=== PATIENT | female | born 1995 | race African-American/Black ===

== ENCOUNTER 2016-11-06 16:20 | Emergency (ER) | payer OTHER ==
[~2016-11-06] VITALS: Ht 160 cm; Wt 61.6 kg
[~2016-11-06 16:20] MED LIST: HYDR-5688 PO
[2016-11-06 16:35] VITALS: TEMP 36.8; Ht 160 cm; Wt 61.6 kg
--- NOTE | 2016-11-06 18:19 | DIAGNOSTIC IMAGING REPORT ---
CT HEAD WITHOUT CONTRAST (CT) CLINICAL HISTORY: Head trauma, headache, sensation of fogginess. COMPARISON STUDY: No previous studies for comparison. TECHNIQUE: Axial CT of the brain is performed from the vertex to the skull base. IV contrast was not administered for this examination. CT DOSE: 767.83 mGy.cm FINDINGS: No intra or extra-axial mass lesions are visualized. There is no CT evidence of acute cortical infarction. There is no evidence of midline shift. There is no acute hemorrhage. No calvarial fractures are visualized. There is no evidence of pathologic ventricular dilatation. There is no evidence of acute sinusitis IMPRESSION: Normal noncontrast head CT. Electronically signed by: Rick Schmitt M.D. 11/06/2016 6:17 PM Dictated Date/Time: 11/06/2016 6:16 PM
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
[2016-11-06 19:41] VITALS: BP 110/65; PULSE 78; O2SAT 98
[2017-04-28] MEDS ORDERED: BCPILLS PO (12:47)
== END 2016-11-06 19:42 | disposition home or self-care (01) ==
LOC: C.EDB 16:22
DX: S09.90XA Unspecified injury of head, initial encounter (principal); W10.8XXA Fall (on) (from) other stairs and steps, initial encounter; F32.9 Major depressive disorder, single episode, unspecified

== ENCOUNTER 2017-04-28 18:52 | Emergency (ER) | payer OTHER ==
[~2017-04-28] VITALS: Ht 160 cm; Wt 66.6 kg
[~2017-04-28 18:52] MED LIST changes: +BCPILLS PO; -HYDR-5688 PO
[2017-04-28 18:55] VITALS: TEMP 37.6; Ht 160 cm; Wt 66.6 kg
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
[2017-04-28] MEDS ORDERED: ONDANSETRON 8 MG/54 ML D5W IV STA (19:13)
[2017-04-28] MEDS ORDERED: SODIUM CHLORIDE 0.9% 1000ML 1,000 ML IV STA (19:13)
[2017-04-28] MEDS ORDERED: IBUP-103 PO (19:23)
[2017-04-28] MEDS ORDERED: AMT10 PO (19:23)
[2017-04-28 19:42] LABS: BASO % 0.4 %; BASO ABS # 0.03 K/uL (0-0.2); COMPLETE YES; EOS % 4.9 %; HEMATOCRIT 45.6 % (37-47); IG% 0.3 %; LYMPH % 16.6 %; LYMPH ABS # 1.13 K/uL (1.2-3.4); MEAN CELL VOLUME 88.9 fL (80-100); MEAN CORPUSCULAR HGB CONC 33.8 g/dl (32-36); MONO % 10.9 %; NEUT % 66.9 %; PLATELET COUNT 174 K/uL (130-400); RED BLOOD COUNT 5.13 M/uL (4.2-5.4); WHITE BLOOD COUNT 6.79 K/uL (4.8-10.8)
--- NOTE | 2017-04-28 20:53 | DIAGNOSTIC IMAGING REPORT ---
PA CHEST RADIOGRAPH AND UPRIGHT AND SUPINE AP RADIOGRAPHS OF THE ABDOMEN CLINICAL HISTORY: Abdominal pain, nausea and vomiting. COMPARISON STUDY: No previous studies for comparison. FINDINGS: Lung volumes are normal. Lungs are clear. There is no pneumothorax or pleural effusion. Cardiac size is normal. Mediastinal contours are normal. There is no evidence of pulmonary edema. There is no free air. Pelvic calcifications likely reflect phleboliths. The bowel gas pattern is normal. IMPRESSION: 1. No free air or evidence of bowel obstruction. 2. No acute cardiopulmonary findings. Electronically signed by: Olivier Hernandez M.D. 04/28/2017 8:52 PM Dictated Date/Time: 04/28/2017 8:51 PM
[2017-04-28] MEDS ORDERED: DICYCLOMINE HCL 20 MG TAB PO STA (20:58)
[2017-04-28 21:10] LABS: PREG INTERNAL NEGATIVE QC NEG CLEAR BACKGROUND; PREG INTERNAL POSITIVE QC POS CONTROL LINE
[2017-04-28 21:16] LABS: BUN/CREATININE RATIO 7.9 (10-20); CALCIUM 7.3 mg/dl (8.5-10.1); CREATININE 0.75 mg/dl (0.60-1.20); POTASSIUM 4.1 mmol/L (3.5-5.1)
[2017-04-28 21:19] LABS: ALB/GLOB RATIO 1.2 (0.9-2)
[2017-04-28] MEDS ORDERED: MULT-506 PO (21:24)
[2017-04-28] MEDS ORDERED: LXP10 PO (21:24)
[2017-04-28 22:57] VITALS: BP 121/77; PULSE 89; O2SAT 98
[2017-04-28] MEDS ORDERED: ONDANSETRON HOME PACK 4MG OD TAB PO ONE (23:00)
== END 2017-04-28 22:58 | disposition home or self-care (01) ==
LOC: C.EDB 18:53
DX: R19.7 Diarrhea, unspecified (principal); R10.9 Unspecified abdominal pain

== ENCOUNTER 2017-04-29 21:17 | Emergency (ER) | payer OTHER ==
[~2017-04-29] VITALS: Ht 157.5 cm; Wt 66.1 kg
[~2017-04-29 21:17] MED LIST changes: +AMT10 PO; +IBUP-103 PO; +LXP10 PO; +MULT-506 PO
[2017-04-29 21:19] VITALS: TEMP 37.2; Ht 157.5 cm; Wt 66.1 kg
[2017-04-29] MEDS ORDERED: SODIUM CHLORIDE 0.9% 1000ML 1,000 ML IV STA ×2 (21:26)
[2017-04-29] MEDS ORDERED: METOCLOPRAMIDE HCL INJ 5 MG/ML 2 ML VIAL IV STA (21:26)
[2017-04-29] MEDS ORDERED: DiphenhydrAMINE HCL 50 MG/ML VIAL IV STA (21:26)
[2017-04-29] MEDS ORDERED: KETOROLAC TROMETHAMINE 30 MG/ML VIAL IV STA (21:26)
[2017-04-29] MEDS ORDERED: DICYCLOMINE HCL 10 MG/ML 2 ML AMP IM ONE (21:30)
[2017-04-29 22:02] LABS: BASO % 0.5 %; BASO ABS # 0.03 K/uL (0-0.2); EOS % 5.5 %; IG% 0.2 %; LYMPH % 19.2 %; LYMPH ABS # 1.23 K/uL (1.2-3.4); MEAN CELL VOLUME 88.3 fL (80-100); MEAN CORPUSCULAR HEMOGLOBIN 29.8 pg (25-34); MEAN CORPUSCULAR HGB CONC 33.8 g/dl (32-36); MEAN PLATELET VOLUME 9.9 fL (7.4-10.4); MONO % 13.1 %; NEUT % 61.5 %; PLATELET COUNT 271 K/uL (130-400); RED BLOOD COUNT 4.53 M/uL (4.2-5.4); WHITE BLOOD COUNT 6.41 K/uL (4.8-10.8)
[2017-04-29 22:15] LABS: BUN/CREATININE RATIO 6.4 (10-20); CREATININE 0.84 mg/dl (0.60-1.20); MAGNESIUM 1.7 mg/dl (1.8-2.4); POTASSIUM 3.6 mmol/L (3.5-5.1); PREG INTERNAL NEGATIVE QC NEG CLEAR BACKGROUND; PREG INTERNAL POSITIVE QC POS CONTROL LINE
[2017-04-29 22:22] LABS: COMPLETE YES
[2017-04-29] MEDS ORDERED: MAGNESIUM SULFATE 1GM / D5W 1 GM BAG IV STA (22:24)
[2017-04-30 00:25] LABS: URINE APPEARANCE CLEAR (CLEAR); URINE BILIRUBIN NEG (NEG); URINE COLOR YELLOW; URINE NITRITE NEG (NEG); URINE PH 5.5 (4.5-7.5); UROBILINOGEN NEG (NEG); ZZUR CULT IF INDIC CLEAN CATCH NO
[2017-04-30 00:28] LABS: MANUAL MICROSCOPIC REQUIRED? NO; REVIEW REQ? NO
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
[2017-04-30] MEDS ORDERED: BENTYL HOME PACK 10 MG VIAL PO ONE (01:00)
[2017-04-30] MEDS ORDERED: ONDANSETRON HOME PACK 4MG OD TAB PO ONE (01:00)
[2017-04-30] MEDS ORDERED: BENTYL HOME PACK 10 MG VIAL ONE (01:00)
[2017-04-30 01:07] VITALS: BP 118/73; PULSE 77; O2SAT 99
== END 2017-04-30 01:08 | disposition home or self-care (01) ==
LOC: C.EDB 21:18
DX: R11.2 Nausea with vomiting, unspecified (principal); R19.7 Diarrhea, unspecified; F32.9 Major depressive disorder, single episode, unspecified; F50.9 Eating disorder, unspecified; L70.9 Acne, unspecified; Z84.1 Family history of disorders of kidney and ureter; Z82.49 Family history of ischemic heart disease and other diseases of the circulatory system; Z79.3 Long term (current) use of hormonal contraceptives; Z79.899 Other long term (current) drug therapy

== ENCOUNTER 2017-08-21 20:14 | Emergency (ER) | payer OTHER ==
[~2017-08-21] VITALS: Ht 160 cm; Wt 70.0 kg
[2017-08-21 20:20] VITALS: TEMP 37; Ht 160 cm; Wt 70.0 kg
--- NOTE | 2017-08-21 21:23 | DIAGNOSTIC IMAGING REPORT ---
CT OF THE HEAD WITHOUT CONTRAST CLINICAL HISTORY: Closed head injury with persistent headache, nausea and vomiting. COMPARISON STUDY: Head CT November 06, 2016. CT DOSE: 537.48 mGy.cm TECHNIQUE: Helical axial images of the head were obtained without IV contrast. Automated exposure control was utilized for the study. A dose lowering technique was utilized adhering to the principles of ALARA. FINDINGS: No acute intracranial hemorrhage, midline shift or mass effect is present. Ventricular system is normal. Basilar cisterns are patent. There are no extra-axial collections. Puente-white differentiation is maintained. No calvarial fracture is identified. IMPRESSION: 1. No acute intracranial findings. 2. No calvarial fracture. Electronically signed by: Olivier Hernandez M.D. 08/21/2017 9:22 PM Dictated Date/Time: 08/21/2017 9:19 PM
[2017-08-21] MEDS ORDERED: ATOM25CA PO (21:35)
[2017-08-21] MEDS ORDERED: LORA-741 PO (21:35)
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
[2017-08-21 22:02] VITALS: BP 117/80; PULSE 74; O2SAT 100
== END 2017-08-21 22:02 | disposition home or self-care (01) ==
LOC: C.EDB 20:15 → C.EDD 22:02
DX: F07.81 Postconcussional syndrome (principal); F32.9 Major depressive disorder, single episode, unspecified; F50.9 Eating disorder, unspecified; Z84.1 Family history of disorders of kidney and ureter; Z82.49 Family history of ischemic heart disease and other diseases of the circulatory system; Z79.3 Long term (current) use of hormonal contraceptives; Z79.899 Other long term (current) drug therapy

== ENCOUNTER 2018-05-28 19:33 | Emergency (ER) | payer OTHER ==
[~2018-05-28] VITALS: Ht 160 cm; Wt 78.0 kg
[~2018-05-28 19:33] MED LIST changes: +ATOM25CA PO; -IBUP-103 PO; +LORA-741 PO; -MULT-506 PO
[2018-05-28 19:42] VITALS: TEMP 36.9; O2SAT 99; Ht 160 cm; Wt 78.0 kg
[2018-05-28] MEDS ORDERED: LORAZEPAM 0.5 MG TAB SL STA (19:48)
[2018-05-28] MEDS ORDERED: SODIUM CHLORIDE 0.9% 1000ML 1,000 ML IV STA (19:48)
[2018-05-28 20:01] LABS: BASO % 0.4 %; BASO ABS # 0.04 K/uL (0-0.2); EOS % 4.1 %; EOS ABS # 0.38 K/uL (0-0.5); HEMATOCRIT 43.1 % (37-47); HEMOGLOBIN 14.3 g/dL (12.0-16.0); IG# 0.02 K/uL (0.00-0.02); LYMPH % 35.4 %; LYMPH ABS # 3.24 K/uL (1.2-3.4); MEAN CORPUSCULAR HEMOGLOBIN 29.9 pg (25-34); MEAN CORPUSCULAR HGB CONC 33.2 g/dl (32-36); MEAN PLATELET VOLUME 10.4 fL (7.4-10.4); MONO % 5.7 %; MONO ABS # 0.52 K/uL (0.11-0.59); NEUT % 54.2 %; NEUT ABS # 4.96 K/uL (1.4-6.5); PLATELET COUNT 338 K/uL (130-400); RED CELL DISTRIBUTION WIDTH CV 13.6 % (11.5-14.5); RED CELL DISTRIBUTION WIDTH SD 44.9 fL (36.4-46.3); WHITE BLOOD COUNT 9.16 K/uL (4.8-10.8)
[2018-05-28] MEDS ORDERED: QUET200T2 PO (20:12)
[2018-05-28] MEDS ORDERED: TOPI25TA99 PO (20:14)
[2018-05-28] MEDS ORDERED: MAGN400T6 PO (20:15)
[2018-05-28] MEDS ORDERED: RIBOCAP PO (20:16)
[2018-05-28] MEDS ORDERED: GABA-112 PO (20:17)
[2018-05-28] MEDS ORDERED: ACET-1256 PO (20:18)
[2018-05-28 20:21] LABS: ALBUMIN 4.2 gm/dl (3.4-5.0); CALCIUM 9.7 mg/dl (8.5-10.1); CREATININE 0.97 mg/dl (0.60-1.20); POTASSIUM 3.3 mmol/L (3.5-5.1); TOTAL PROTEIN 8.5 gm/dl (6.4-8.2)
--- NOTE | 2018-05-28 22:05 | DIAGNOSTIC IMAGING REPORT ---
CHEST ONE VIEW PORTABLE CLINICAL HISTORY: sob COMPARISON STUDY: 04/28/2017 FINDINGS: The cardiac and mediastinal contours are normal. There is no evidence of focal pulmonary consolidation. There is no evidence of failure. No pleural effusions are visualized.[ IMPRESSION: No active disease in the chest. Electronically signed by: Rick Schmitt M.D. 05/28/2018 10:04 PM Dictated Date/Time: 05/28/2018 10:04 PM
[2018-05-28 22:19] VITALS: BP 121/89; PULSE 97; O2SAT 100
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
== END 2018-05-28 22:19 | disposition home or self-care (01) ==
LOC: EDBD 19:33 → C.EDB 19:34
DX: R06.00 Dyspnea, unspecified (principal); E87.6 Hypokalemia; F32.9 Major depressive disorder, single episode, unspecified; Z79.899 Other long term (current) drug therapy